=== PATIENT | male | born 1995 ===

== ENCOUNTER 2022-05-24 11:06 | Emergency (ER) | payer SELFPAY ==
[~2022-05-24] VITALS: Ht 175 cm; Wt 83.0 kg
--- NOTE | 2022-05-24 11:22 | ED General ---
General Chief Complaint: Allergic Reaction Stated Complaint: ALLERGIC REACTION (PEANUTS) Source of Information: Patient Exam Limitations: No Limitations History of Present Illness Date Seen by Provider: May 24, 2022 Time Seen by Provider: 11:18 Initial Comments To ER with reports of peanut allergy. At about 10:45 AM he drank some protein powder which unknowingly had some peanut powder in it. He is allergic to peanuts. He feels like the tip of his tongue is swollen and he states that his tongue "feels like I just ate a jalapeno". He reports nausea and a mild wheeze. Denies any abdominal cramping or diarrhea. No hives no rash no shortness of breath no difficulty swallowing or difficulty breathing. He has not yet taken any medications for this. Timing/Duration: 1-2 Days Severity: Moderate Associated Systoms: Denies Symptoms Allergies and Home Medications Allergies Coded Allergies: peanut (Verified Allergy, Unknown, 05/24/22) Patient Home Medication List Home Medication List Reviewed: Yes Review of Systems Review of Systems Constitutional: see HPI EENTM: see HPI, mouth swelling Respiratory: no symptoms reported; No cough, No dyspnea on exertion, No short of breath Cardiovascular: no symptoms reported Genitourinary: no symptoms reported Musculoskeletal: no symptoms reported Skin: no symptoms reported Psychiatric/Neurological: No Symptoms Reported Hematologic/Lymphatic: No Symptoms Reported Immunological/Allergic: no symptoms reported Physical Exam Vital Signs Vital Signs - First Documented 05/24/22 05/24/22 11:10 11:55 Temp 37.0 Pulse 89 Resp 20 B/P (MAP) 165/102 (123) Pulse Ox 98 Capillary Refill : Height, Weight, BMI Height: '" Weight: lbs. oz. kg; BMI Method: General Appearance: No Apparent Distress, WD/WN, Other (No apparent distress no hypotension or tachycardia, lungs are clear) Eyes: Bilateral Eye Normal Inspection, Bilateral Eye PERRL, Bilateral Eye EOMI HEENT: PERRL/EOMI, TMs Normal, Other (Appears normal and without swelling) Neck: Full Range of Motion, Normal Inspection Respiratory: No Accessory Muscle Use, No Respiratory Distress Cardiovascular: Regular Rate, Rhythm, Normal Peripheral Pulses Gastrointestinal: Normal Bowel Sounds, Non Tender, Soft Extremity: Normal Capillary Refill, Normal Inspection Neurologic/Psychiatric: Alert, Oriented x3 Skin: Normal Color, Warm/Dry Progress/Results/Core Measures Suspected Sepsis SIRS Temperature: Pulse: Respiratory Rate: Blood Pressure / Mean: Results/Orders My Orders Orders - MOSHE SAENZ APRN Prednisone Tablet (Deltasone Tablet) (05/24/22 11:30) Famotidine Tablet (Pepcid Tablet) (05/24/22 11:30) Diphenhydramine Tablet (Benadryl Tablet) (05/24/22 11:30) Medications Given in ED Current Medications Medications Dose Ordered Sig/Song Route Start Time Stop Time Status Last Admin Dose Admin Diphenhydramine HCl 25 mg ONCE ONCE PO 05/24/22 11:30 05/24/22 11:31 DC 05/24/22 11:22 25 MG Famotidine 20 mg ONCE ONCE PO 05/24/22 11:30 05/24/22 11:31 DC 05/24/22 11:22 20 MG Prednisone 40 mg ONCE ONCE PO 05/24/22 11:30 05/24/22 11:31 DC 05/24/22 11:22 40 MG Vital Signs/I&O 05/24/22 05/24/22 11:10 11:55 Temp 37.0 Pulse 89 83 Resp 20 18 B/P (MAP) 165/102 (123) 131/86 Pulse Ox 98 Capillary Refill : Departure Communication (Admissions) 1158-tongue sensation improved no distress will discharge to home. Impression Primary Impression: Peanut allergy Disposition: 01 HOME, SELF-CARE Condition: Stable Departure-Patient Inst. Decision time for Depature: 11:22 Referrals: JENN FREITAS DO (PCP/Family) Primary Care Physician Patient Instructions: Peanut Allergy Add. Discharge Instructions: 1. You can use 1 Benadryl every 4-6 hours as needed for itching. Take Pepcid 1 tablet twice a day as directed for the next 1 to 2 days. Return to ER for any concerns. All discharge instructions reviewed with patient and/or family. Voiced understanding. Work/School Note: Work Release Form Date Seen in the Emergency Department: May 24, 2022 Return to Work: May 24, 2022 MOSHE SAENZ APRN May 24, 2022 11:22
[2022-05-24] MEDS ORDERED: predniSONE 20 MG TAB PO ONE (11:30)
[2022-05-24] MEDS ORDERED: FAMOTIDINE 20 MG (PEPCID) TABLET PO ONE (11:30)
[2022-05-24] MEDS ORDERED: diphenhydrAMINE 25 MG TAB (BENADRYL) PO ONE (11:30)
[2022-05-24 11:55] VITALS: BP 131/86
== END 2022-05-24 12:00 | disposition home or self-care (01) ==
LOC: EDUNIT# 11:06 → ER 11:09
DX: R11.0 Nausea (principal); R06.2 Wheezing; T78.1XXA Other adverse food reactions, not elsewhere classified, initial encounter; Z28.310 Unvaccinated for COVID-19
CPT/HCPCS: 99283